=== PATIENT | male | born 1995 | race Hispanic/Latino ===

== ENCOUNTER 2018-08-27 19:56 | Emergency (ER) | payer SELFPAY ==
[2018-08-27] MEDS ORDERED: NA CHLORIDE 0.9% 1,000 ML ONE (20:55)
[2018-08-27] MEDS ORDERED: ONDANSETRON 4 MG/2 ML VIAL ONE (20:55)
[2018-08-27] MEDS ORDERED: KETOROLAC 30 MG/ML INJ ONE (20:55)
[2018-08-27] MEDS ORDERED: FAMOTIDINE 20 MG/2 ML VIAL IV ONE (20:57)
[2018-08-27 21:08] LABS: Absolute Lymphocytes (CBC) 1.8 K/uL (0.7-4.9); Absolute Monocytes 0.7 K/uL (0.1-1.3); Absolute Neutrophil 7.1 K/uL (1.8-8.0); Basophils % 0.6 % (0-1.3); Eosinophils % 6.2 % (0-4.4); Hematocrit 41.9 % (39.6-49.0); Lymphocytes % 17.3 % (15.3-44.8); MPV 8.8 fL (7.6-11.3); Monocytes % 7.1 % (3.3-12.3); RBC Red Blood Cell Count 4.48 M/uL (4.33-5.43)
[2018-08-27 21:20] LABS: Albumin 3.9 g/dL (3.4-5.0); Bilirubin Direct 0.5 mg/dL (0-0.2); Bilirubin Total 1.4 mg/dL (0.2-1.0); Potassium 3.9 mmol/L (3.5-5.1); Protein, Total 7.2 g/dL (6.4-8.2)
[2018-08-27] MEDS ORDERED: MAGNE/ALUM HYDROXD 30 ML UCUP ONE (21:57)
[2018-08-27] MEDS ORDERED: LIDOCAINE VISCOUS 2% SOLN 15 ML UDC ONE (21:57)
--- NOTE | 2018-08-27 22:01 | EDPHYS ---
Physician Documentation [facility] Name: Go Maguire Age: 22 yrs Sex: Male : 1995 Arrival Date: 08/27/2018 Time: 19:58 Bed 28 Private MD: ED Physician Shaun Bejarano HPI: 08/27 20:45 This 22 yrs old Male presents to ER via Ambulatory with complaints of cp Abdominal Pain. 20:45 The patient presents with abdominal pain in the upper abdomen. cp 20:45 Onset: The symptoms/episode began/occurred last night, after eating. The symptoms do cp not radiate. 20:45 Associated signs and symptoms: Pertinent positives: nausea and vomiting, Pertinent cp negatives: chest pain, constipation, diarrhea, dysuria, fever, vomiting blood. 20:45 The symptoms are described as achy. cp 20:45 Severity of pain: in the emergency department the pain is unchanged despite home cp interventions. Historical: - Allergies: 20:12 No Known Allergies; la1 - PMHx: 20:12 Asthma; Pancreatitis; la1 - PSHx: 20:12 Appendectomy; Cholecystectomy; la1 - Immunization history:: Adult Immunizations up to date. - Social history:: Smoking status: Patient/guardian denies using tobacco. - Ebola Screening: : No symptoms or risks identified at this time. ROS: 21:00 Constitutional: Negative for body aches, chills, fever, poor PO intake. cp 21:00 Eyes: Negative for injury, pain, redness, and discharge. cp 21:00 ENT: Negative for drainage from ear(s), ear pain, sore throat, difficulty swallowing, difficulty handling secretions. 21:00 Cardiovascular: Negative for chest pain, edema, palpitations. 21:00 Respiratory: Negative for cough, shortness of breath, wheezing. 21:00 Abdomen/GI: Positive for abdominal pain, nausea and vomiting, of the right upper quadrant and left upper quadrant, Negative for diarrhea, constipation, hematemesis, black/tarry stool, rectal bleeding. 21:00 Back: Negative for pain at rest, pain with movement, radiated pain. 21:00 : Negative for urinary symptoms. 21:00 Skin: Negative for cellulitis, rash. 21:00 Neuro: Negative for altered mental status, headache, syncope, weakness. 21:00 All other systems are negative. Exam: 21:05 Constitutional: The patient appears in no acute distress, alert, awake, cp non-diaphoretic, non-toxic, well developed, well nourished, uncomfortable. 21:05 Head/Face: Normocephalic, atraumatic. cp 21:05 Eyes: Periorbital structures: appear normal, Conjunctiva: normal, no exudate, no injection, Sclera: no appreciated abnormality, Lids and lashes: appear normal, bilaterally. 21:05 ENT: External ear(s): are unremarkable, Nose: is normal, Mouth: Lips: moist, Oral mucosa: pink and intact, moist, Posterior pharynx: is normal, airway is patent, no erythema, no exudate. 21:05 Chest/axilla: Inspection: normal, Palpation: is normal, no crepitus, no tenderness. 21:05 Cardiovascular: Rate: normal, Rhythm: regular. 21:05 Respiratory: the patient does not display signs of respiratory distress, Respirations: normal, no use of accessory muscles, no retractions, no splinting, no tachypnea, labored breathing, is not present, Breath sounds: are clear throughout, no decreased breath sounds, no stridor, no wheezing. 21:05 Abdomen/GI: Inspection: abdomen appears normal, Bowel sounds: active, all quadrants, Palpation: soft, in all quadrants, moderate abdominal tenderness, in the right upper quadrant and left upper quadrant, rebound tenderness, is not appreciated, involuntary guarding, is not appreciated. 21:05 Back: pain, is absent, ROM is normal. 21:05 Skin: cellulitis, is not appreciated, no rash present. Vital Signs: 20:13 Pulse 67; Resp 14; Temp 97.4; Pulse Ox 100% on R/A; Weight 91.63 kg; Height 5 ft. 8 in. la1 (172.72 cm); Pain 9/10; 20:14 BP 123 / 77; la1 20:13 Body Mass Index 30.71 (91.63 kg, 172.72 cm) la1 MDM: 20:22 Patient medically screened. cp 21:00 Differential diagnosis: gastritis, gastroesophageal reflux disease, GI Bleed, cp non-specific abd pain, pancreatitis, Peptic Ulcer Disease, Perf. Duodenal Ulcer, Perf. Gastric Ulcer, Ureterolithiasis. 21:59 Data reviewed: vital signs, nurses notes, lab test result(s), radiologic studies, plain cp films, and as a result, I will discharge patient. 21:59 Test interpretation: by ED physician or midlevel provider: plain radiologic studies. cp Counseling: I had a detailed discussion with the patient and/or guardian regarding: the historical points, exam findings, and any diagnostic results supporting the discharge/admit diagnosis, lab results, radiology results, to return to the emergency department if symptoms worsen or persist or if there are any questions or concerns that arise at home. Response to treatment: the patient's symptoms have markedly improved after treatment, VSS. Chest xray reviewed and negative for air under diaphragm or infiltrates, and as a result, I will discharge patient. 08/27 20:41 Order name: Basic Metabolic Panel; Complete Time: 21:23 cp 08/27 21:57 Interpretation: Normal except: CL 108; GFR 88; CA 8.2. cp 08/27 20:41 Order name: CBC with Diff; Complete Time: 21:23 cp 08/27 20:41 Order name: Creatinine for Radiology; Complete Time: 21:23 cp 08/27 20:41 Order name: Hepatic Function; Complete Time: 21:23 cp 08/27 21:23 Interpretation: Normal except: AST 72; BILIT 1.4; BILID 0.5. cp 08/27 20:41 Order name: Lipase; Complete Time: 21:23 cp 08/27 21:24 Order name: XRAY Chest (1 view) cp 08/27 20:41 Order name: IV Saline Lock; Complete Time: 20:55 cp 08/27 20:41 Order name: Labs collected and sent; Complete Time: 20:55 cp Administered Medications: 21:07 Drug: NS 0.9% 1000 ml Route: IV; Rate: 1 bolus; Site: left antecubital; sg 22:07 Follow up: IV Status: Completed infusion la1 : Drug: Zofran 4 mg Route: IVP; Site: left antecubital; sg 22:07 Follow up: Response: No adverse reaction la1 :08 Drug: Pepcid 20 mg Route: IVP; Site: left antecubital; sg 22:07 Follow up: Response: No adverse reaction la1 :08 Drug: TORadol 30 mg Route: IVP; Site: left antecubital; sg 22:07 Follow up: Response: No adverse reaction la1 21:50 Drug: GI Cocktail without - (Maalox Suspension 30 ml, Lidocaine Liquid 2 % 15 sg ml) Route: PO; 22:07 Follow up: Response: No adverse reaction la1 Disposition: 23:22 Co-signature as Attending Physician, Shaun Bejarano MD. pkl Disposition: 08/27/18 22:00 Discharged to Home. Impression: Epigastric pain. - Condition is Stable. - Discharge Instructions: Abdominal Pain, Adult, Gastritis, Adult. - Prescriptions for Protonix 40 mg Oral Tablet, Delayed Release (E.C.) - take 1 tablet by ORAL route once daily for 10 days; 10 tablet. Zofran 4 mg Oral Tablet - take 1 tablet by ORAL route every 12 hours As needed; 20 tablet. - Medication Reconciliation Form, Thank You Letter, Antibiotic Education, Prescription Opioid Use form. - Follow up: Private Physician; When: 2 - 3 days; Reason: Recheck today's complaints. - Problem is new. - Symptoms have improved. Signatures: Dispatcher [employer] EDMS To Burgos RN RN sg Lam, Pin, MD MD pk Paddy Hobson RN RN la1 Gibran Cisneros PA PA cp Corrections: (The following items were deleted from the chart) 21:57 21:57 Normal except: CL 108; GFR 88. cp cp 22:07 22:00 08/27/2018 22:00 Discharged to Home. Impression: Epigastric pain. Condition is la1 Stable. Forms are Medication Reconciliation Form, Thank You Letter, Antibiotic Education, Prescription Opioid Use. Follow up: Private Physician; When: 2 - 3 days; Reason: Recheck today's complaints. Problem is new. Symptoms have improved. cp 08/28 17:07 08/27 20:45 Onset: The symptoms/episode began/occurred yesterday, cp cp
--- NOTE | 2018-08-27 22:01 | ER ---
Nurse's Notes [facility] Name: Go Maguire Age: 22 yrs Sex: Male : 1995 Arrival Date: 08/27/2018 Time: 19:58 Bed 28 Private MD: Diagnosis: Epigastric pain Presentation: 08/27 20:12 Presenting complaint: Patient states: I started having bad upper abd pain yesterday la1 after eating last night, I kept vomiting then I went to sleep, after dinner I started having abd pain and vomiting again. Transition of care: patient was not received from another setting of care. Onset of symptoms was August 27, 2018. Risk Assessment: Do you want to hurt yourself or someone else? Patient reports no desire to harm self or others. Initial Sepsis Screen: Does the patient meet any 2 criteria? No. Patient's initial sepsis screen is negative. Does the patient have a suspected source of infection? No. Patient's initial sepsis screen is negative. Care prior to arrival: None. 20:12 Method Of Arrival: Ambulatory la1 20:12 Acuity: DELMIS 3 la1 Historical: - Allergies: 20:12 No Known Allergies; la1 - PMHx: 20:12 Asthma; Pancreatitis; la1 - PSHx: 20:12 Appendectomy; Cholecystectomy; la1 - Immunization history:: Adult Immunizations up to date. - Social history:: Smoking status: Patient/guardian denies using tobacco. - Ebola Screening: : No symptoms or risks identified at this time. Screenin:20 Abuse screen: Denies threats or abuse. Denies injuries from another. Nutritional sg screening: No deficits noted. Tuberculosis screening: No symptoms or risk factors identified. Never had TB. Fall Risk None identified. Assessment: 20:20 General: Appears in no apparent distress. Behavior is calm, cooperative, appropriate sg for age. 20:20 Pain: Complains of pain in epigastric area, anterior aspect of right lateral abdomen, sg right upper quadrant and left upper quadrant Quality of pain is described as aching, sharp. Neuro: Level of Consciousness is awake, alert, obeys commands, Oriented to person, place, time, situation, Lightning Protection Installer are equal bilaterally Moves all extremities. Full function Gait is steady, Speech is normal, Facial symmetry appears normal, Pupils are PERRLA. Cardiovascular: Capillary refill is brisk in bilateral fingers Patient's skin is warm and dry. Chest pain is denied. Respiratory: Airway is patent Respiratory effort is even, unlabored, Respiratory pattern is regular, symmetrical, Breath sounds are clear. GI: Abdomen is round non-distended, Bowel sounds present X 4 quads. Abd is soft and non tender X 4 quads. Reports upper abdominal pain, nausea. : No signs and/or symptoms were reported regarding the genitourinary system. EENT: No signs and/or symptoms were reported regarding the EENT system. Derm: Skin is pink, warm \T\ dry. Musculoskeletal: No signs and/or symptoms reported regarding the musculoskeletal system. Vital Signs: 20:13 Pulse 67; Resp 14; Temp 97.4; Pulse Ox 100% on R/A; Weight 91.63 kg; Height 5 ft. 8 in. la1 (172.72 cm); Pain 9/10; 20:14 BP 123 / 77; la1 20:13 Body Mass Index 30.71 (91.63 kg, 172.72 cm) la1 ED Course: 19:58 Patient arrived in ED. am2 20:12 Arm band placed on left wrist. la1 20:13 Triage completed. la1 20:22 Gibran Cisneros PA is PHCP. cp 20:22 Shaun Bejarano MD is Attending Physician. cp 20:26 To Burgos, SIN is Primary Nurse. sg 20:58 Initial lab(s) drawn, by me, sent to lab. Inserted saline lock: 20 gauge in left lt1 antecubital area, using aseptic technique. 21:55 XRAY Chest (1 view) In Process Unspecified. EDMS 22:06 No provider procedures requiring assistance completed. IV discontinued, intact, la1 bleeding controlled, No redness/swelling at site. Pressure dressing applied. Administered Medications: 21:07 Drug: NS 0.9% 1000 ml Route: IV; Rate: 1 bolus; Site: left antecubital; sg 22:07 Follow up: IV Status: Completed infusion la1 21:08 Drug: Zofran 4 mg Route: IVP; Site: left antecubital; sg 22:07 Follow up: Response: No adverse reaction la1 21:08 Drug: Pepcid 20 mg Route: IVP; Site: left antecubital; sg 22:07 Follow up: Response: No adverse reaction la1 21:08 Drug: TORadol 30 mg Route: IVP; Site: left antecubital; 22:07 Follow up: Response: No adverse reaction la1 21:50 Drug: GI Cocktail without - (Maalox Suspension 30 ml, Lidocaine Liquid 2 % 15 sg ml) Route: PO; 22:07 Follow up: Response: No adverse reaction la1 Outcome: 22:00 Discharge ordered by . maximo 22:07 Discharged to home ambulatory. la1 22:07 Condition: stable 22:07 Discharge instructions given to patient, Instructed on discharge instructions, follow up and referral plans. Demonstrated understanding of instructions, follow-up care, medications, Prescriptions given X 2. 22:07 Patient left the ED. la1 Signatures: Dispatcher [employer] EDMS To Burgos RN RN sg Paddy Hobson RN RN la1 Gibran Cisneros PA PA cp Moreno, Amanda am2 Arielle Rivas lt1 Corrections: (The following items were deleted from the chart) 21:53 21:51 General: Appears in no apparent distress. sg
[2018-08-27 22:18] VITALS: BP 123/77; TEMP 97.4; O2SAT 100
--- NOTE | 2018-08-28 08:02 | RAD REPORT ---
EXAM DESCRIPTION: [facility] Single View08/27/2018 9:55 pm CLINICAL HISTORY: Abdominal COMPARISON: none FINDINGS: The lungs appear clear of acute infiltrate. The heart is normal size IMPRESSION: No acute abnormalities displayed
== END 2018-08-27 22:07 | disposition home or self-care (01) ==
LOC: ER 19:56
DX: R10.13 Epigastric pain (principal); J45.909 Unspecified asthma, uncomplicated
CPT/HCPCS: 36415; 71045; 80048; 80076; 83690; 85025; 96361; 96374; 96375; 99284; J2405; J7030

== ENCOUNTER 2019-03-27 14:11 | Emergency (ER) | payer SELFPAY ==
[2019-03-27 14:46] LABS: Absolute Lymphocytes (CBC) 2.1 K/uL (0.7-4.9); Basophils % 0.6 % (0-1.3); Hematocrit 41.3 % (39.6-49.0); MPV 8.8 fL (7.6-11.3); RBC Red Blood Cell Count 4.38 M/uL (4.33-5.43)
[2019-03-27] MEDS ORDERED: ONDANSETRON 4 MG/2 ML VIAL ONE (15:09)
[2019-03-27] MEDS ORDERED: NA CHLORIDE 0.9% 1,000 ML ONE (15:09)
[2019-03-27] MEDS ORDERED: KETOROLAC 30 MG/ML INJ ONE (15:09)
[2019-03-27] MEDS ORDERED: FAMOTIDINE 20 MG/2 ML VIAL IV ONE (15:09)
[2019-03-27 15:24] LABS: Bilirubin Direct 0.3 mg/dL (0-0.2); Potassium 3.6 mmol/L (3.5-5.1); Protein, Total 7.6 g/dL (6.4-8.2)
--- NOTE | 2019-03-27 15:55 | RAD REPORT ---
EXAM DESCRIPTION: CTAbdomen Pelvis W Contrast - 03/27/2019 3:44 pm CLINICAL HISTORY: Abdominal pain. ABD PAIN COMPARISON: No comparisons TECHNIQUE: Biphasic CT imaging of the abdomen and pelvis was performed with 100 ml non-ionic IV cont rast. All CT scans are performed using dose optimization technique as appropriate and may include automated exposure control or mA/KV adjustment according to patient size. FINDINGS: The lung bases are clear. The liver, spleen, pancreas, adrenal glands and kidneys are within normal limits. No bowel obstruction, free air, free fluid or abscess. The appendix is not identified as a discrete structure, however, no secondary findings of appendicitis are identified. No evidence of significan t lymphadenopathy. No suspicious bony findings. IMPRESSION: No acute intra-abdominal or pelvic finding.
[2019-03-27] MEDS ORDERED: MAGNE/ALUM HYDROXD 30 ML UCUP ONE (16:09)
[2019-03-27] MEDS ORDERED: LIDOCAINE VISCOUS 2% SOLN 15 ML UDC ONE (16:09)
--- NOTE | 2019-03-27 16:09 | EDPHYS ---
Physician Documentation [facility] Name: Go Maguire Age: 23 yrs Sex: Male : 1995 Arrival Date: 03/27/2019 Time: 14:15 Bed 14 Private MD: ED Physician Gibran Michael HPI: 03/27 14:29 This 23 yrs old Male presents to ER via EMS with complaints of Epigastric Pain.pm1 14:29 The patient presents with abdominal pain in the epigastric area. pm1 14:29 Onset: The symptoms/episode began/occurred 6 month(s) ago. The symptoms radiate to pm1 right back. Associated signs and symptoms: Pertinent negatives: nausea, vomiting, and diarrhea. The symptoms are described as crampy. Modifying factors: the symptoms are aggravated by food, spicy food. Severity of pain: in the emergency department the pain is actually worse. The patient has not recently seen a physician. 14:29 Hx of cholecystectomy . pm1 Historical: - Allergies: 14:16 No Known Allergies; rb1 - Home Meds: 14:16 None [Active]; rb1 - PMHx: 14:16 Asthma; rb1 - PSHx: 14:16 Appendectomy; Cholecystectomy; rb1 - Immunization history:: Adult Immunizations up to date. - Social history:: Smoking status: Patient/guardian denies using tobacco. - Ebola Screening: : Patient negative for fever greater than or equal to 101.5 degrees Fahrenheit, and additional compatible Ebola Virus Disease symptoms. ROS: 14:29 Constitutional: Negative for fever, chills, and weight loss, Eyes: Negative for injury, pm1 pain, redness, and discharge, ENT: Negative for injury, pain, and discharge, Neck: Negative for injury, pain, and swelling, Cardiovascular: Negative for chest pain, palpitations, and edema, Respiratory: Negative for shortness of breath, cough, wheezing, and pleuritic chest pain. 14:29 Back: Negative for injury and pain, : Negative for injury, bleeding, discharge, and swelling, MS/Extremity: Negative for injury and deformity, Skin: Negative for injury, rash, and discoloration, Neuro: Negative for headache, weakness, numbness, tingling, and seizure. 14:29 Abdomen/GI: Positive for abdominal pain, of the epigastric area, Negative for nausea, vomiting, and diarrhea. Exam: 14:29 Constitutional: This is a well developed, well nourished patient who is awake, alert, pm1 and in no acute distress. Head/Face: Normocephalic, atraumatic. Chest/axilla: Normal chest wall appearance and motion. Nontender with no deformity. No lesions are appreciated. Cardiovascular: Regular rate and rhythm with a normal S1 and S2. No gallops, murmurs, or rubs. Normal PMI, no JVD. No pulse deficits. Respiratory: Lungs have equal breath sounds bilaterally, clear to auscultation and percussion. No rales, rhonchi or wheezes noted. No increased work of breathing, no retractions or nasal flaring. 14:29 Back: No spinal tenderness. No costovertebral tenderness. Full range of motion. Skin: Warm, dry with normal turgor. Normal color with no rashes, no lesions, and no evidence of cellulitis. MS/ Extremity: Pulses equal, no cyanosis. Neurovascular intact. Full, normal range of motion. 14:29 Abdomen/GI: Inspection: abdomen appears normal, Bowel sounds: normal, Palpation: soft, mild abdominal tenderness, in the epigastric area, mass, is not appreciated, rebound tenderness, is not appreciated. 14:29 Neuro: Orientation: is normal, Motor: is normal, moves all fours. Vital Signs: 14:16 BP 141 / 95; Pulse 61; Resp 20; Temp 98.0(O); Pulse Ox 100% on R/A; Weight 90.72 kg rb1 (R); Height 5 ft. 11 in. (180.34 cm) (R); Pain 10/10; 15:14 BP 119 / 74; Pulse 62; Resp 14; Temp 97.9(TE); Pulse Ox 100% on R/A; mh5 16:12 BP 121 / 73; Pulse 64; Resp 19; Temp 98.0(O); Pulse Ox 100% on R/A; Pain 6/10; rb1 17:01 BP 122 / 76; Pulse 63; Resp 18; Pulse Ox 99% on R/A; Pain 7/10; rb1 14:16 Body Mass Index 27.89 (90.72 kg, 180.34 cm) rb1 MDM: 14:21 Patient medically screened. pm1 16:06 Data reviewed: vital signs. Data interpreted: Pulse oximetry: on room air is 100 %. pm1 Interpretation: normal. Counseling: I had a detailed discussion with the patient and/or guardian regarding: the historical points, exam findings, and any diagnostic results supporting the discharge/admit diagnosis, lab results, radiology results, the need for outpatient follow up, a stripper preliminary, to return to the emergency department if symptoms worsen or persist or if there are any questions or concerns that arise at home. 03/27 14:21 Order name: Basic Metabolic Panel; Complete Time: 15:26 pm1 03/27 14:21 Order name: CBC with Diff; Complete Time: 14:55 pm1 03/27 14:21 Order name: Creatinine for Radiology; Complete Time: 15:26 pm1 03/27 14:21 Order name: Hepatic Function; Complete Time: 15:26 pm1 03/27 14:21 Order name: Lipase; Complete Time: 15:26 pm1 03/27 14:21 Order name: IV Saline Lock; Complete Time: 14:26 pm1 03/27 14:26 Order name: EKG; Complete Time: 14:26 rb1 03/27 14:55 Order name: CT Abd/Pelvis - IV Contrast Only; Complete Time: 16:06 pm1 03/27 14:21 Order name: Labs collected and sent; Complete Time: 14: pm1 03/27 14:26 Order name: EKG - Nurse/Tech; Complete Time: 14:26 rb1 Administered Medications: 15:15 Drug: Pepcid 20 mg Route: IVP; Site: right antecubital; rb1 15:30 Follow up: Response: No adverse reaction rb1 15:16 Drug: TORadol - Ketorolac 15 mg Route: IVP; Site: right antecubital; rb1 15:30 Follow up: Response: No adverse reaction; Pain is decreased rb1 15:16 Drug: Zofran 4 mg Route: IVP; Site: right antecubital; rb1 15:30 Follow up: Response: No adverse reaction; Nausea is decreased rb1 15:16 Drug: NS 0.9% 1000 ml Route: IV; Rate: 1000 ml; Site: right antecubital; rb1 16:35 Follow up: IV Status: Completed infusion rb1 16:15 Drug: GI Cocktail without - (Maalox Suspension 30 ml, Lidocaine Liquid 2 % 15 rb1 ml) Route: PO; 16:35 Follow up: Response: No adverse reaction; Pain is decreased rb1 Disposition: 03/28 07:06 Co-signature as Attending Physician, Gibran Michael MD I agree with the assessment and concepcion plan of care. Disposition: 03/27/19 16:07 Discharged to Home. Impression: Unspecified abdominal pain. - Condition is Stable. - Discharge Instructions: Abdominal Pain, Adult. - Prescriptions for Bentyl 20 mg Oral Tablet - take 1 tablet by ORAL route every 6 hours As needed; 20 tablet. Pepcid 20 mg Oral Tablet - take 1 tablet by ORAL route every 12 hours for 10 days; 20 tablet. Zofran 4 mg Oral Tablet - take 1 tablet by ORAL route every 12 hours As needed; 20 tablet. - Medication Reconciliation Form, Thank You Letter, Antibiotic Education, Prescription Opioid Use, Work release form form. - Follow up: Emergency Department; When: As needed; Reason: Worsening of condition. Follow up: Private Physician; When: 2 - 3 days; Reason: Recheck today's complaints, Continuance of care, Re-evaluation by your physician. - Problem is new. - Symptoms have improved. Signatures: Dispatcher [employer] [facility] Gibran Michael MD MD cha Barber, Rebecca, SIN RN rb1 Reinaldo Watson NP [employer]IL[employer] pm1 Corrections: (The following items were deleted from the chart) 03/27 15:36 14:51 Abdomen Limited+[id number] ordered. [facility] 17:04 16:07 03/27/2019 16:07 Discharged to Home. Impression: Unspecified abdominal pain. rb1 Condition is Stable. Forms are Work release form, Medication Reconciliation Form, Thank You Letter, Antibiotic Education, Prescription Opioid Use. Follow up: Emergency Department; When: As needed; Reason: Worsening of condition. Follow up: Private Physician; When: 2 - 3 days; Reason: Recheck today's complaints, Continuance of care, Re-evaluation by your physician. Problem is new. Symptoms have improved. pm1
--- NOTE | 2019-03-27 16:09 | ER ---
Nurse's Notes [facility] Name: Go Maguire Age: 23 yrs Sex: Male : 1995 Arrival Date: 03/27/2019 Time: 14:15 Bed 14 Private MD: Diagnosis: Unspecified abdominal pain Presentation: 03/27 14:16 Presenting complaint: EMS states: Pt. is 23 yr, c/o intermittent epigastric pain 03/08, rb1 has been going on for months. Pain radiates to the right side. BP 134/99, P 77. NKDA, no medications or history. Transition of care: patient was not received from another setting of care. Onset of symptoms was March 27, 2019. Risk Assessment: Do you want to hurt yourself or someone else? Patient reports no desire to harm self or others. Initial Sepsis Screen: Does the patient meet any 2 criteria? No. Patient's initial sepsis screen is negative. Does the patient have a suspected source of infection? No. Patient's initial sepsis screen is negative. Care prior to arrival: None. 14:16 Method Of Arrival: EMS: [facility] 14:16 Acuity: DELMIS 3 rb1 Triage Assessment: 14:16 General: Appears uncomfortable, Behavior is calm, cooperative, Denies fever, Pt. rb1 reports that he had rice and sausage for lunch and then the pain started after that.. Pain: Complains of pain in epigastric area Pain radiates to anterior aspect of right lateral abdomen and right upper quadrant Pain currently is 10 out of 10 on a pain scale. Pain began Off and on for the past several months. Neuro: Level of Consciousness is awake, alert, obeys commands, Oriented to person, place, time, situation. Cardiovascular: Capillary refill < 3 seconds is brisk in bilateral fingers. Respiratory: Airway is patent Respiratory effort is even, unlabored, Respiratory pattern is regular, symmetrical. GI: Reports vomiting, x 1, clear emesis due to the pain. : No signs and/or symptoms were reported regarding the genitourinary system. Derm: Skin is clammy, Skin is normal, Skin temperature is warm. Historical: - Allergies: 14:16 No Known Allergies; rb1 - Home Meds: 14:16 None [Active]; rb1 - PMHx: 14:16 Asthma; rb1 - PSHx: 14:16 Appendectomy; Cholecystectomy; rb1 - Immunization history:: Adult Immunizations up to date. - Social history:: Smoking status: Patient/guardian denies using tobacco. - Ebola Screening: : Patient negative for fever greater than or equal to 101.5 degrees Fahrenheit, and additional compatible Ebola Virus Disease symptoms. Screenin:16 Abuse screen: Denies threats or abuse. Nutritional screening: No deficits noted. rb1 Tuberculosis screening: No symptoms or risk factors identified. Fall Risk None identified. Assessment: 14:16 General: See triage assessment. rb1 15:15 Reassessment: Patient appears in no apparent distress at this time. No changes from rb1 previously documented assessment. 16:04 Reassessment: Patient appears in no apparent distress at this time. Patient and/or rb1 family updated on plan of care and expected duration. Pain level reassessed. Patient is alert, oriented x 3, equal unlabored respirations, skin warm/dry/pink. 17:00 Reassessment: Patient appears in no apparent distress at this time. No changes from rb1 previously documented assessment. Vital Signs: 14:16 BP 141 / 95; Pulse 61; Resp 20; Temp 98.0(O); Pulse Ox 100% on R/A; Weight 90.72 kg rb1 (R); Height 5 ft. 11 in. (180.34 cm) (R); Pain 10/10; 15:14 BP 119 / 74; Pulse 62; Resp 14; Temp 97.9(TE); Pulse Ox 100% on R/A; mh5 16:12 BP 121 / 73; Pulse 64; Resp 19; Temp 98.0(O); Pulse Ox 100% on R/A; Pain 6/10; rb1 17:01 BP 122 / 76; Pulse 63; Resp 18; Pulse Ox 99% on R/A; Pain 7/10; rb1 14:16 Body Mass Index 27.89 (90.72 kg, 180.34 cm) [facility] ED Course: 14:15 Patient arrived in ED. rb1 14:16 Arm band placed on right wrist. rb1 14:16 Patient has correct armband on for positive identification. Bed in low position. Call rb1 light in reach. Side rails up X 1. skylights assembler on. Pulse ox on. NIBP on. Warm blanket given. 14:18 Triage completed. rb1 14:19 Reinaldo Watson NP is PHCP. pm1 14:19 Gibran Michael MD is Attending Physician. pm1 14:25 Alley Rivera, RN is Primary Nurse. rb1 14:29 Initial lab(s) drawn, by me, sent to lab. Inserted saline lock: 20 gauge in right mh5 antecubital area, using aseptic technique. 14:30 Patient has correct armband on for positive identification. Bed in low position. Call 5 light in reach. Side rails up X 1. Warm blanket given. skylights assembler on. Pulse ox on. NIBP on. 14:46 EKG done, by prosthetic lab technician. reviewed by Gibran Michael MD. 3 14:57 Radiology exam delayed due to lab results not completed at this time. (BUN/Creatinine). sj 15:44 CT Abd/Pelvis - IV Contrast Only In Process Unspecified. EDMS 15:46 CT completed. Patient tolerated procedure well. Patient moved to CT. Patient moved back al from CT. 17:03 No provider procedures requiring assistance completed. IV discontinued, intact, rb1 bleeding controlled, No redness/swelling at site. Pressure dressing applied. Administered Medications: 15:15 Drug: Pepcid 20 mg Route: IVP; Site: right antecubital; rb1 15:30 Follow up: Response: No adverse reaction rb1 15:16 Drug: TORadol - Ketorolac 15 mg Route: IVP; Site: right antecubital; rb1 15:30 Follow up: Response: No adverse reaction; Pain is decreased rb1 15:16 Drug: Zofran 4 mg Route: IVP; Site: right antecubital; rb1 15:30 Follow up: Response: No adverse reaction; Nausea is decreased rb1 15:16 Drug: NS 0.9% 1000 ml Route: IV; Rate: 1000 ml; Site: right antecubital; rb1 16:35 Follow up: IV Status: Completed infusion rb1 16:15 Drug: GI Cocktail without - (Maalox Suspension 30 ml, Lidocaine Liquid 2 % 15 rb1 ml) Route: PO; 16:35 Follow up: Response: No adverse reaction; Pain is decreased rb1 Outcome: 16:07 Discharge ordered by . pm1 17:03 Discharged to home ambulatory, with family. rb1 17:03 Condition: stable 17:03 Discharge instructions given to patient, Instructed on discharge instructions, follow up and referral plans. medication usage, Demonstrated understanding of instructions, follow-up care, medications, Prescriptions given X 3. 17:04 Patient left the ED. rb1 Signatures: Dispatcher [employer] Shayla Altman Rebecca RN RN rb1 Reinaldo Watson, [employer] DES[employer] pm1 Julien, Stuart Jimenez, Poly 5 Padmini Landaverde 3
--- NOTE | 2019-03-27 17:42 | EKG ---
Test Date: 2019-03-27 Test Time: 14:16:31 Escape Wheel Tooth Cutter: ROCCO MEASUREMENT RESULTS: Intervals: Rate: 61 MS: 176 QRSD: 90 QT: 380 QTc: 382 [place]ey: P: 59 MS: 176 QRS: 56 T: 51 INTERPRETIVE STATEMENTS: Normal sinus rhythm ST elevation, probably due to early repolarization Borderline ECG No previous ECG available for comparison Electronically Signed On 03-27-19 17:41:23 CDT by Rayray Corea
[2019-03-27 18:06] VITALS: TEMP 98
[2019-03-27 18:08] VITALS: BP 122/76; O2SAT 99
== END 2019-03-27 17:04 | disposition home or self-care (01) ==
LOC: ER 14:11
DX: R10.13 Epigastric pain (principal)
CPT/HCPCS: 36415; 74177; 80048; 80076; 83690; 85025; 93005; 96361; 96374; 96375; 99285; J2405; J7030; Q9967